=== PATIENT | male | born 1930 | race Native Hawaiian/Other Pacific Islander ===

== ENCOUNTER 2020-09-18 01:07 | Emergency (ER) | payer OTHER ==
[~2020-09-18] VITALS: Ht 182.9 cm; Wt 69.9 kg
[2020-09-18 01:07] VITALS: BP 114/62; TEMP 98.7
[2020-09-18 01:35] LABS: PLATELET COUNT 218 K/uL (142-355)
[2020-09-18 02:05] LABS: POTASSIUM 3.7 mmol/L (3.6-5.2)
[2020-09-18 02:38] VITALS: BP 141/62; TEMP 98.5
[2020-09-18] MEDS ORDERED: ASPIR-8181 MG PO (03:37)
[2020-09-18] MEDS ORDERED: LOVASTATIN20 MG PO (03:39)
[2020-09-18] MEDS ORDERED: METO50TA63 PO (03:40)
[2020-09-18] MEDS ORDERED: OMEPRAZOLE DR40 MG PO (03:43)
[2020-09-18] MEDS ORDERED: SEROQUEL25 MG PO (03:45)
[2020-09-18] MEDS ORDERED: CARAFATE1 GM PO (03:47)
[2020-09-18] MEDS ORDERED: NITR0.4S2 SL (03:51)
[2020-09-18] MEDS ORDERED: PANTOPRAZOLE SO40 M1 PO (03:53)
[2020-09-19] MEDS ORDERED: RISP0.25 PO (10:27)
[2020-09-19] MEDS ORDERED: NYSTCRE TOP (10:27)
[2020-09-19] MEDS ORDERED: OLAN10INJ IM (10:27)
[2020-09-19] MEDS ORDERED: MELATONIN MAXIMU5 MG PO (10:27)
[2020-09-19] MEDS ORDERED: FLUC150T PO (10:28)
[2020-09-19] MEDS ORDERED: ESCI10TA PO (10:28)
[2020-09-19] MEDS ORDERED: CHOL100034 PO (10:29)
[2020-09-19] MEDS ORDERED: CEFT1INJ27 IM (10:29)
[2020-09-19] MEDS ORDERED: DIPH50IN INJ (10:29)
== END 2020-09-18 02:38 | disposition other institution (70) ==
LOC: ED 01:07 → ICU 09-19 11:50 → ED 09-19 11:50
DX: F03.91 Unspecified dementia, unspecified severity, with behavioral disturbance (principal); R31.9 Hematuria, unspecified; Z11.59 Encounter for screening for other viral diseases; Z04.6 Encounter for general psychiatric examination, requested by authority
CPT/HCPCS: 36415; 80053; 81000; 85027; 87077; 87088; 87635; 93005; 99283; J0132; U0003

== ENCOUNTER 2020-09-19 11:50 | Inpatient (IN) | payer OTHER ==
[2020-09-19] VITALS (25 sets, daily range): BP systolic 90–1143; BP diastolic 31–94; TEMP 97–102.9; Ht 182.9 cm; Wt 68.2 kg
[~2020-09-19] VITALS: Ht 182.9 cm; Wt 68.2 kg
[~2020-09-19 11:50] MED LIST: ASPIR-8181 MG PO; CARAFATE1 GM PO; CEFT1INJ27 IM; CHOL100034 PO; DIPH50IN INJ; ESCI10TA PO; FLUC150T PO; LOVASTATIN20 MG PO; MELATONIN MAXIMU5 MG PO; METO50TA63 PO; NITR0.4S2 SL; NYSTCRE TOP; OLAN10INJ IM; OMEPRAZOLE DR40 MG PO; PANTOPRAZOLE SO40 M1 PO; RISP0.25 PO; SEROQUEL25 MG PO
--- NOTE | 2020-09-19 12:00 | NUR ---
PT WAS TRANSFERRED TO AN ICU BED WITH NORMAL SALINE ALREADY INFUSING. TRADESHOW WORKER AND TELEMETRY WAS PUT ON PT AFTER ARRIVING FROM THE [facility]. PT AGITATED DUE TO STIMULATION AT THIS TIME.
--- NOTE | 2020-09-19 12:00 | NUR ---
PATIENT BROUGHT VIA STRETCHER TO ICU BED #2. PATIENT IS CONFUSED AND AGITATED PULLING STAFF WITH HIS HANDS AND HOLLERING WHEN REPOSITIONING HIM IN THE BED. IV 22G TO THE LEFT FOREARM NOTED PATENT AND INTACT INFUSING 1/2 NS AT 75 ML/HR. SHIFT ASSESSMENT COMPLETED. DEFIBRILLATOR NOTED TO THE LEFT CHEST WALL. PATIENT HAS A SMALL RASH ON HIS CHEST AND SEVERAL SMALL ABRASIONS TO BILATERAL LOWER EXTREMITIES. PATIENT HAS A 18F.SCOTT CATHETER DRAINING TO TO BSD --DARK GALLITO URINE NOTED. PATIENT ALSO HAS EXCORIATION NOTED TO THE SACRUM WITH SKIN INTACT. PATIENT NOTED WITH AXILLARY TEMP 102.9. RECTAL PROBE PLACED AND COOLING BLANKET APPLIED AT THIS TIME.
--- NOTE | 2020-09-19 13:00 | NUR ---
HUNG TYLENOL RUNNING AT 100 MLS/ 200/MLS HOUR WHICH INFUSED IN 30 MINUTES DUE TO A FEVER OF 102.9. PT'S TEMP ONLY DROPPED TO 102.3 AFTER INFUSION. COOLING BLANKET ON PT NOW.
--- NOTE | 2020-09-19 14:15 | NUR ---
VANCOMYCIN @ 250MLS/ 250 MLS/HOUR INFUSING AT THIS TIME WITH NORMAL SALINE THE PRIMARY FLUID.
--- NOTE | 2020-09-19 15:22 | NUR ---
VANCOMYCIN ANTIBIOTIC JUST FINISHED INFUSING AND FLUSHED THE LINE TO START THE ZOCYN
--- NOTE | 2020-09-19 15:50 | NUR ---
ZOCYN PB FINISHED AT THIS TIME SIDE RAILS UP TIMES THREE, BED IN LOWEST POSITION, AND AGITATED AT THIS TIME.
--- NOTE | 2020-09-19 15:59 | NUR ---
BENADRYL 25 MG GIVEN AT THIS TIME FOR AGITATION. WILL MONITOR EFFECTIVENESS IN THE COMING HOUR
--- NOTE | 2020-09-19 17:30 | NUR ---
PT IS RESTLESS AND AGITATED AT THIS TIME. GRIMACES UPON STIMULATION OF ANY STIMULI. SIDE RAILS UP TIMES THREE, BED IN LOWEST POSITION.
--- NOTE | 2020-09-19 17:48 | NUR ---
HAD TO STOP FLUCONAZOLE INFUSION DUE TO OCCLUSION IN THE LINE. CLAMPED OFF BOTH PRIMARY AND SECONDARY INFUSION DUE TO OCCLUSION.
--- NOTE | 2020-09-19 17:53 | NUR ---
CURRENTLY RECTAL TEMP IS 101.5 AT THIS TIME. COOLING BLANKET ON PT. STILL AGITATED AND RESTLESS AT THIS TIME.
--- NOTE | 2020-09-19 18:15 | NUR ---
20 GAUGE TIMES TWO ATTEMPTS LOCATED IN RIGHT CEPAHLIC VEIN. FLUSHED SUCCESSFULY AND FLUCONAZOLE AND NS FLUIDS ARE RUNNING SUCCESSFULLY THROUGH THE LINE NOW.
--- NOTE | 2020-09-19 19:43 | NUR ---
PT WAS GIVEN OFIRMEV 1000MG IV FOR ELEVATED TEMPERATURE OF 100.4.
--- NOTE | 2020-09-19 20:00 | NUR ---
ASSUMED CARE OF 89 YEAR OLD WHITE MALE ADMITTED TODAY FROM [facility] WITH UROSEPSIS. PT HAS 18 MALAWIAN SCOTT CATHETAR AND HAS DARK URINE DRAINING. BLOOD CULTURES RESULTS REPORTED FROM LAB. BOTH ARE POSITIVE. PT IS RECEING ANTIBIOTIC THERAPY AT PRESENT. PT WAS ASSESSED. PT DOES MOVE HIS ARMS AND LOWER EXT. PT WITH NATIONAL ACCOUNTS SALES BRUSING TO HIS UPPER EXTREMITIES. ORAL CARE BEING GIVEN AND PT BEING TURNED EVERY 2 HOURS/AND PRN.
--- NOTE | 2020-09-19 20:30 | NUR ---
TEMPERTURE REASSESS 99.0 RECTAL.
[2020-09-20] VITALS (16 sets, daily range): BP systolic 80–138; BP diastolic 44–83; TEMP 96.9–98.4
--- NOTE | 2020-09-20 00:17 | NUR ---
PT RESTING WITH EYES CLOSED. NS INFUSING AT 75 ML/HR VIA INFUSION PUMP. BP IS 109/47.
--- NOTE | 2020-09-20 02:08 | NUR ---
PT CONTINUES TO REST WITH EYES CLOSED. VS STABLE. O2 SAT IS 100 PERCENT.
--- NOTE | 2020-09-20 03:59 | NUR ---
PT WAS GIVEN BENADRYL 25 MG IVSP FOR AGITATION. PT BECOMES SCARED AND STARTS CRYING. TALKED TO PT CALMLY AND REASSURED HIM THAT HS IS SAFE. PT CALMS DOWN WITH MEDICATION AND COMFORT MEASURE.
--- NOTE | 2020-09-20 04:00 | NUR ---
PATIENT'S BED SCALE WEIGHT IS 152.8 LBS, WITH 2 PILLOWS AND 2 BLANKETS ON BED.
--- NOTE | 2020-09-20 05:29 | NUR ---
LAB HERE TO DRAW BLOOD FOR AM LABS.
[2020-09-20 05:43] LABS: PLATELET COUNT 145 K/uL (142-355)
[2020-09-20 06:07] LABS: POTASSIUM 3.7 mmol/L (3.6-5.2)
--- NOTE | 2020-09-20 07:00 | NUR ---
RECEIVED REPORT FROM MERRITT FUCHS RN. PATIENT IS AWAKE ATTEMPTING TO REMOVE ALL MONITORS AND KICKING HIS LEGS UP IN THE AIR. PATIENT REQUIRING MAX REDIRECTION WITH NO SUCCESS. PATIENT BECOMES MORE AGITATED AND IS CRYING OUT LOUDLY WITH NO ONE TOUCHING HIM. CALM APPROACH PROVIDED BUT PATIENT CONTINUES TO BE AGITATED AND AGGRESIVE. BED LOCKED IN LOW POSITION, SIDE RAILS UP X2, CALL BANEGAS WITHIN REACH
--- NOTE | 2020-09-20 07:05 | NUR ---
PATIENT GIVEN ZYPREXA 2.5 MG IM IN THE RIGHT VASTUS LATERALIS. WILL ASSESS POST MEDICATION FOR A DECREASE IN AGITATION AND RESTLESSNESS.
--- NOTE | 2020-09-20 08:57 | NUR ---
HERE ROUNDING ON PATIENT. PATIENT IS SITTING IN HIGH FOWLERS POSITION AND IS QUITE AND NOT PULLING AT LEADS. PATIENT IS NOT RESTLESS AND AGITATED AT THIS TIME. BED LOCKED IN LOW POSITION, SIDE RAILS UP X3.
--- NOTE | 2020-09-20 09:27 | NUR ---
PATIENT ATTEMPTING TO GET OUT OF BED BY SLIDING ALL THE WAY TO THE END OF THE BED. ATTEMPT MADE TO REDIRECT PATIENT WITH NO SUCCESS. PATIENT AGITATED AND STARTING HOLLERING. 2 PERSON ASSIST WAS NEEDED TO MOVE PATIENT BACK UP IN THE BED. BED LOCKED IN LOW POSITION, SIDE RAILS UP X3
--- NOTE | 2020-09-20 10:19 | NUR ---
PATIENT REPOSITIONED UP IN THE BED WITH HELP FROM NANO STAFFORD AND THUAN ASSISTANT ELEMENTARY TEACHER. PATIENT ATTEMPTING TO GET OUT OF THE BED WITH HIS LOWER EXTREMITITES UP IN THE AIR AND ATTEMPTING TO PULL UP USING THE SIDE RAILS. PATIENT ADJUSTED UP IN THE BED WITH HEAD ELEVATED. MONITORS PLACED BACK ON PATIENT WITH SPO2 95%, HR 91.
--- NOTE | 2020-09-20 10:36 | NUR ---
PATIENT CONTINUES TO SHOW SIGNS OF AGITATION AND RESTLESSNESS ATTEMPTING TO CLIMB OUT OF THE BED. PATIENT REMAINS HIGH FALL RISK FROM PREVIOUS FALLS AND CURRENT ADMISSION HX OF DEMENTIA AND AGITATION AND AGGRESSION. PATIENT GIVEN BENADRYL 25 MG IV PUSH ORDERED FOR AGITATION. WILL REASSESS FOR DECREASE IN AGITATION.
--- NOTE | 2020-09-20 12:06 | NUR ---
PATIENT PULLED ALL MONITORS OFF AND IS ATTEMPTING TO GET UP OUT OF BED. PATIENT REPOSITIONED UP IN THE BED AND ALL MONTIORS PLACED BACK ON THE PATIENT. CURRENT AXILLARY TEMP 99. HR 73. BED LOCKED IN LOW POSITION, SIDE RAILS UP X2, CALL BANEGAS WITHIN REACH.
--- NOTE | 2020-09-20 13:46 | NUR ---
VANCOMYCIN 1000MG SPIKED AND HUNGED AT THIS TIME.
--- NOTE | 2020-09-20 15:00 | NUR ---
ADRIANNA HERE WITH SPEECH LANGUAGE PATHOLOGIST HERE AT THE BEDSIDE DOING EVALUATION FOR DIET. PATIENT WAS ABLE TO TAKE APPLE JUICE WITH NECTAR THICKENING AND ATE A JACI CRACKER COOKIE. NEW ORDER PLACED IN CHART FOR SOFT MECHANICAL DIET AND NECTAR THICKENED LIQUIDS.
--- NOTE | 2020-09-20 16:18 | NUR ---
PATIENT PULLED OUT HIS IV FROM THE RIGHT UPPER ARM WITH TIP INTACT. AREA SECURED WITH 2X2 AND COVERED WITH TAPE. IV 20G X2 ATTEMPTS STARTED TO THE RIGHT FOREARM WITH GOOD FLUSH RETURN. AREA SECURED WITH NAOMI AND TAPE.
--- NOTE | 2020-09-20 16:25 | NUR ---
AFTER A FEW MINUTES OF 1/2 NS FLUIDS INFUSING TO THE RIGHT FOREARM PATIENT PULLED HIS IV OUT WITH TIP INTACT. AREA NOTED WITH SMALL AMOUNTS OF BLOOD AT SITE. AREA SECURED WITH TAPE AND NAOMI. PATIENT ALSO PULLING ELECTRODES AND MONITOR, TUGGING AT HIS SCOTT CATHETER DESPITE REDIRECTION.
--- NOTE | 2020-09-20 17:25 | NUR ---
PATIENT GIVEN A PARTIAL BATH AND LINENS CHANGED. NYSTATIN APPLIED TO PERINEUM AND BUTTOCKS. 3 PERSON ASSIST TO HOLD PATIENT TO START IV. IV 20G X 1 ATTEMPT STARTED TO THE RIGHT WRIST/FOREARM W/O DIFFICULTY.
--- NOTE | 2020-09-20 18:00 | NUR ---
PATIENT CONTINUES TO ATTEMPT TO REMOVE CARDIAC MONITORS AND SCOTT CATHETER. PATIENT ALMOST ATTEMPTED TO PULL 3RD IV OUT BUT MANAGED TO SECURE THE TIP. IV FLUSHED AND NO RESISTANCE NOTED FLUSHING WITHOUT DIFFICULTY. WHEN ATTEMPTING TO ORIENT PATIENT HE IS AGITATED SQUEEZING HARD WITH HANDS AND DIGGING NAILS INTO THE NURSES HANDS AND ARM. CALLED AND NEW ORDER GIVEN FOR BILATERAL SOFT WIRST RESTRAINTS. SOFT WIRST RESTRAINTS APPLIED AT THIS TIME. AFTER RESTRAINTS PATIENT IS MORE CALM AND IS RESTING COMFORTABLY. WILL CONTINUE TO MONITOR.
--- NOTE | 2020-09-20 19:43 | NUR ---
PT WAS REPOSITIONED IN BED HIGH FOWLERS. PT CALM. PCT AT BEDSIDE ASSISTING WITH FEEDING AT THIS TIME.
[2020-09-21] VITALS (21 sets, daily range): BP systolic 110–145; BP diastolic 50–93; TEMP 97.1–98.6
--- NOTE | 2020-09-21 00:34 | NUR ---
PT AGITATED MOVING LEGS AND ARMS. TALKING AND RAMBLING WITH HIS CONVERSATION. PT WAS MEDICATED WITH OLANZAPINE 5 MG IM GIVEN TO PT'S LEFT QLUTEAL MUSCLE.
--- NOTE | 2020-09-21 03:58 | NUR ---
PT RESTING. CALMING DOWN SOME. URINE IS DARK BROWN.
[2020-09-21 04:46] LABS: PLATELET COUNT 153 K/uL (142-355)
[2020-09-21 05:17] LABS: POTASSIUM 3.4 mmol/L (3.6-5.2)
--- NOTE | 2020-09-21 09:00 | NUR ---
DR COX AT BS AT THIS TIME. LABS REPORTED AND INFORMED MD OF PT AGITATION AND THAT PT HAD PULLED HIS IV OUT PRIOR TO ROUNDS. PT REMAINED AGITATED SO WILL ATTEMPT IV AT A LATER TIME.
--- NOTE | 2020-09-21 14:30 | NUR ---
SPOKE WITH ON PHONE CONCERNING PT'S SODIUM LEVEL REMAINING AT 153 AND PT CURRENTLY GETTING 1/2NS AT 75ML/HR. ALSO REPORTED POTASSIUM LEVEL AT 3.5. STATED SHE WOULD PUT IN NEW ORDERS.
--- NOTE | 2020-09-21 14:32 | NUR ---
REC'D CALL FROM PT'S SON. UPDATE GIVEN AT THIS TIME.
--- NOTE | 2020-09-21 14:59 | NUR ---
DREW FROM PHARM CALLED AND INFORMED HER MD WAS DC 1/2NS AND CHANGING TO D5W ALSO SPOKE ABOUT VAN TROUGH . VAN WILL BE RETIMED PER PHARM
--- NOTE | 2020-09-21 16:45 | NUR ---
PT WOKE UP FROM NAP CRYING UNCONTROLLABY. WENT TO PT'S BED AND ASKED WHAT WAS WRONG AND PT STATED HE WAS WORRIED ABOUT HIS AND WAs worried she was dying. redirected pt and reoriented at this time. pt still crying will inform md for possible new orders.
--- NOTE | 2020-09-21 17:00 | NUR ---
INFORMED OF PT CRYING. NO NEW ORDERS REC'D WILL GIVE PT PRN ORDERS AND SEE IF MEDS HELP. ALSO CALLED PT'S SON BRANDY FOR HIM TO SPEAK WITH PT. NO ANSWER LEFT MESSAGE.
--- NOTE | 2020-09-21 17:12 | NUR ---
PT'S SON CALLED BUT ON CORDLESS PHONE. EXPLAINED TO SON THE PROBLEM AND WILL CALL HIM BACK ON CORDLESS PHONE FOR HIM TO TALK TO SON.
--- NOTE | 2020-09-21 19:20 | NUR ---
REPOSITIONED PATIENT IN BED WITH ASSISTANCE OF NURSE GLEZ. PATIENT TOLERATED WELL. NO S/SX OF DISTRESS NOTED WITH PATIENT AT THIS TIME.
--- NOTE | 2020-09-21 20:38 | NUR ---
PT CONFUSED REORIENTED NEEDED BUT ONLY ORIENTED TO SELF. TALKATIVE WITH STAFF AND ALSO TALKING OUT LOUD WHEN STAFF IS NOT AT BEDSIDE, MOVING FEET AROUND IN BED AND PICKS FEET UP INTO AIR OR PUTS FOOT OVER BEDRAIL AT TIMES. NO ACUTE DISTRESS NOTED, WILL MONITOR CLOSELY, RAILS UP, BED IN LOW POSITION.
--- NOTE | 2020-09-21 21:40 | NUR ---
PM MEDICATIONS GIVEN TO PATIENT AND LEADS REPLACED WITHOUT DIFFICULTY. PATIENT CONVERSING WITH STAFF WITH TEARFUL MOMENTS.
[2020-09-22] VITALS (22 sets, daily range): BP systolic 94–162; BP diastolic 31–99; TEMP 97.1–99.8
--- NOTE | 2020-09-22 00:01 | NUR ---
PATIENT RESTING QUIETLY IN BED WITH EYES OPEN. NO S/SX OF DISTRESS NOTED WITH PATIENT AT THIS TIME.
--- NOTE | 2020-09-22 02:56 | NUR ---
RESTING IN BED WITH EYES CLOSED, NO S/S OF PAIN OR DISTRESS NOTED, RESP RATE NONLABORED 13, SCOTT PATENT DRAINING TO BEDSIDE, IV SITE INTACT WITH D5 INFUSING AT 75ML/HR, ON ROOM AIR WITH SAT OF 98%, VITALS BEING MONITORED, CRIMINAL ATTORNEY IN USE WITH PACEMAKER SPIKES NOTED AND RATE OF 76, WILL MONITOR CLOSELY, RAILS UP, BED IN LOW POSITION.
--- NOTE | 2020-09-22 03:40 | NUR ---
PROVIDED PATIENT A WARM BLANKET. PT V/O HIS APPRECIATION FOR SAME. NO S/SX OF DISTRESS NOTED WITH PATIENT AT THIS TIME.
--- NOTE | 2020-09-22 03:50 | NUR ---
PATIENT RESTING QUIETLY IN BED WITH EYES CLOSED. NAD NOTED WITH PATIENT AT THIS TIME.
--- NOTE | 2020-09-22 04:45 | NUR ---
LAB AT BEDSIDE TO DRAW MORNING BLOOD WORK, ASSISTED LAB, NO ACUTE DISTRESS NOTED, WILL MONITOR.
[2020-09-22 04:58] LABS: PLATELET COUNT 163 K/uL (142-355)
--- NOTE | 2020-09-22 05:09 | NUR ---
PT AWAKE TALKING OFF AND ON FIDGETING WITH COVERS, REMAINS CONFUSED EXCEPT TO SELF, DENIES ANY PROBLEMS, NO S/S OF ACUTE DISTRESS OR PAIN NOTED, PT MOVING FEET AROUND IN BED AND LIFTS FEET OFF OF BED INTO AIR OFF AND ON DURING SHIFT. AT TIMES PT CALLS FOR HIS OR OTHER FAMILY MEMBERS REORIENTED NEEDED BUT REMAINS CONFUSED. SCOTT PATENT, IV INTACT WITH FLUID ONGOING. WILL MONITOR CLOSELY, RAILS UP, BED IN LOW POSITION.
[2020-09-22 05:13] LABS: POTASSIUM 3.2 mmol/L (3.6-5.2)
--- NOTE | 2020-09-22 06:00 | NUR ---
PATIENT WEIGHT THIS AM IS 152.9, 2 PILLOWS AND 1 BLANKET AND BED LINENS ON BED.
--- NOTE | 2020-09-22 06:04 | NUR ---
PT AWAKE MOVING FEET AROUND IN BED AND PUTTING LEGS UP IN AIR, TALKING TO STAFF AND TALKING OUT LOUD WHEN STAFF IS NOT AT BEDSIDE, REMAINS CONFUSED, RESP RATE NONLABORED, ON ROOM AIR WITH SAT OF 99%, IV INTACT TO R FA WITH FLUID ONGOING AND SCTOT PATENT DRAINING TO BEDSIDE, DENIES ANY PROBLEMS, NO S/S OF PAIN OR ACUTE DISTRESS NOTED. GOWN AND TOP SHEET CHANGED ALONG WITH CHUX. MOUTH CARE COMPLETED AND LIPS MOISTURIZED, PT STATES "THANK YOU" AUTO SUSPENSION AND STEERING MECHANIC GAVE CARE. REORIENTED PT. WILL MONITOR CLOSELY, RAILS UP, BED IN LOW POSITION.
--- NOTE | 2020-09-22 08:00 | NUR ---
PT VERY AGITATED. NOTICED THAT PT IS LESS AGITATED WITH DECREASED EXTERNAL STIMUL AND PT NOTED TO BE MORE CALM WITH SOMEONE SITTING BESIDE HIM ONE ON ONE CARE. PCT AT BS IN CHAIR AT THIS TIME. PT IN HIGH FOWELRS POSITION NO ACUTE DISTRESS NOTED.
--- NOTE | 2020-09-22 11:00 | NUR ---
DR COX AT BS AT THIS TIME.
--- NOTE | 2020-09-22 11:05 | NUR ---
XRAY AT BS TO OBTAIN CHEST XRAY AT THIS TIME
--- NOTE | 2020-09-22 11:30 | NUR ---
LABS REPORTED TO DR COX WHILE WAS AT BS. NEW ORDERS REC'D FOR POTASSIUM 60MEQ PO ONCE NO FURTHER ORDERS AT THIS TIME.
--- NOTE | 2020-09-22 13:30 | NUR ---
PT'S SON CALLED AND UPDATE GIVEN AT THIS TIME. PT'S SON STATED THAT HIS FATHER DOES IN [place] [employer] [place] AND HE WAS UNDER THE UNDERSTANDING HIS DADS GLASSES WENT WITH HIM TO THE [facility]. [facility] CALLED AND I SPOKE TO THUAN ALVARADO RN AND NO GLASSES FOUND WITH ISABELLA GARCIA . WILL CALL PT'S SON BACK AND ASK HIM TO TOUCH BASE WITH SNF PT WAS AT PRIOR TO TRANSFER TO [facility]. PT GIVEN EXTRA PAIR OF READING GLASSES TO BORROW AT THIS TIME. PT STATED "THERE NOW I CAN SEE"
--- NOTE | 2020-09-22 16:27 | NUR ---
PT WOKE UP FROM SLEEPING AGITATED AND FIDGETING WITH CORDS AND SHEETS. PT NOTED TO BE CRYING UNABLE TO CONSOLE. INFOMRED. PT GAVE PRN MEDS PRIOR TO NOTIFYING .
--- NOTE | 2020-09-22 18:00 | NUR ---
PT REMAINS ANXIOUS AND NOTED THAT OUTPUT FROM SCOTT ONLY 450ML OF CONCENTRATED URINE WITH SEDIMENT NOTED IN BOTTOM OF SCOTT BAG. SCOTT CATH IRRIGATED WITH 100ML OF STERILE WATER AND SCOTT BAG CHANGED AT THIS TIME. 160ML OF BLOOD TINGED URINE/IRRIGATION NOTED IN SCOTT BAG;. PT STATED HE FELT BETTER AFTER IRRIGATION AND PT LESS AGITATED. WILL CONT TO MONITOR AND INFORM
--- NOTE | 2020-09-22 18:15 | NUR ---
DR COX INFORMED OF SCOTT AND IRRIGATION AND BLOOD TINGE URINE. NO NEW ORDERS REC'D AT THIS TIME
--- NOTE | 2020-09-22 20:22 | NUR ---
PT AWAKE AND ANXIOUS WORRIED ABOUT HIS "ROSE", REPEATEDLY ASKING ABOUT HIS PT REASSURED MULTIPLE TIMES. CONFUSED TO PLACE TIME AND SITUATION REORIENTED OFTEN. RESP RATE 18 NONLABORED, ON ROOM AIR WITH SAT IN HIGH 90s, VITALS BEING MONITORED, CONE MARKER IN USE WITH PACER SPIKES NOTED RATE OF 94, SCOTT PATENT DRAINING TO BEDSIDE, 22G IV INTACT TO R FA WITH D5 INFUSING AT 75ML/HR, WILL MONITOR CLOSELY, RAILS UP, BED IN LOW POSITION.
--- NOTE | 2020-09-22 20:48 | NUR ---
PT APPEARS LESS ANXIOUS AT THIS TIME, SAND MILL GRINDER AT BEDSIDE TALKING WITH PT AND REASSURED HIM MULTIPLE TIMES, NO ACUTE DISTRESS NOTED, RAILS UP, BED IN LOW POSITION, WILL CONTINUE TO MONITOR CLOSELY.
--- NOTE | 2020-09-22 22:00 | NUR ---
AWAKE WATCHING TV WITH NO ACUTE DISTRESS NOTED, FIDGETING WITH COVERS AND REMOTE TO TV TALKATIVE WITH STAFF AND ASKING ABOUT HIS OFF AND ON, REASSURED PT, ALSO LIFTS FEET IN AIR AND SOMETIMES OVER SIDE OF BED RAIL ON R SIDE, REDIRECTED PT, WILL MONITOR, RAILS UP, BED IN LOW POSITION.
--- NOTE | 2020-09-22 23:08 | NUR ---
PATIENT IS IN SEMI FOWLERS POSITION, MUMBLING AND BECOMES TEARFUL AT TIMES REQUESTING TO GO HOME TO HIS , ROSE. REDIRECTED PATIENT AND REMINDED HIM HE WAS IN THE HOSPITAL. REASSURED PATIENT ROSE IS SAFE AT HOME.
[2020-09-23] VITALS (22 sets, daily range): BP systolic 89–152; BP diastolic 42–102; TEMP 98.5–98.9
--- NOTE | 2020-09-23 01:20 | NUR ---
PT RESTING IN BED WITH EYES CLOSED, NO S/S OF PAIN OR DISTRESS NOTED, RESP RATE NONLABORED, ON ROOM AIR, VITALS BEING MONITORED, RAILS UP, BED IN LOW POSITION, WILL MONITOR CLOSELY.
--- NOTE | 2020-09-23 01:45 | NUR ---
PT AWAKE IN BED CONFUSED FIDGETING WITH COVERS NO ACUTE DISTRESS NOTED, IV INTACT, SCOTT PATENT, RESP RATE NONLABORED, VITALS BEING MONITORED, WILL MONITOR CLOSELY, RAILS UP, BED IN LOW POSITION. PICKS FEET UP OFF BED AND MOVING THEM IN AIR. REASSURED AND REORIENTED PT, PT REMAINS CONFUSED.
--- NOTE | 2020-09-23 02:52 | NUR ---
REMAINS AWAKE WITH NO ACUTE DISTRESS NOTED, REMAINS CONFUSED ONLY ORIENTED TO SELF/PERSON REORIENTED OFTEN AND REMINDED THAT HE IS AT HOSPITAL, RESP RATE NONLABORED ON ROOM AIR WITH SAT OF 99-100%, 18F SCOTT PATENT DRAINING TO BEDSIDE, 22G IV INTACT TO R FA WITH FLUID ONGOING, VITALS BEING MONITORED, CONVERSION WORKER IN USE WITH RATE IN 90s. ENCOURAGED PT TO GET SOME SLEEP. RAILS UP, BED IN LOW POSITION, STAFF CONTINUES TO MONITOR.
[2020-09-23 05:20] LABS: PLATELET COUNT 178 K/uL (142-355)
--- NOTE | 2020-09-23 05:20 | NUR ---
AWAKE LAYING IN BED WITH NO S/S OF ACUTE DISTRESS OR PAIN NOTED, CONFUSED AND FIDGETING WITH COVERS/GOWN/CORDS OFF AND ON, REORIENTED PT OFTEN DURING SHIFT, ATTEMPTED TO REDIRECT PT, RESP RATE NONLABORED, ON ROOM AIR, RESIDENT CARE AID IN USE AND VITALS BEING MONITORED Q 1 HOUR, WHEN ASKED PT DENIES ANY NEEDS, STATES SOMETHING ABOUT GOING HOME REMINDED PT THAT THE DR WOULD BE HERE THIS MORNING TO SEE HIM, IV INTACT WITH FLUID ONGOING, SCOTT PATENT DRAINING TO BEDSIDE NOTE PT HAS GRABBED SCOTT CATH TUBING TRYING TO GET IT OUT OF THE [place] BUT IS NOT REALLY PULLING ON TUBING. ENCOURAGED NOT TO MESS WITH SCOTT TUBING. WILL MONITOR CLOSELY, RAILS UP, BED IN LOW POSITION, HOB ELEVATED.
[2020-09-23 05:35] LABS: POTASSIUM 3.6 mmol/L (3.6-5.2)
--- NOTE | 2020-09-23 08:00 | NUR ---
DR COX CALLED AND LAB RESULTS GIVEN AT THIS TIME. NO NEW ORDERS REC'D AT THIS TIME.
--- NOTE | 2020-09-23 13:30 | NUR ---
PT RESTING QUIETLY IN BED WITH EYES CLOSED. NO DISTRESS NOTED.
--- NOTE | 2020-09-23 14:00 | NUR ---
DR COX AT BS MAKING ROUNDS. PT REMAINS RESTING WITH EYES CLOSED NO PROBOLEMS NOTED
--- NOTE | 2020-09-23 18:03 | NUR ---
PT'S SON BRANDY CALLED FOR AN UPDATE. UPDATE GIVEN. ASSISTED PT WITH HOLDING THE PHONE SO THAT BRANDY COULD TALK TO HIM. PT TOLERATED WELL NO OUTBURST OR ANXIOUSNESS NOTED AFTER TALKING TO SON. PT STATES "THANK YOU"
--- NOTE | 2020-09-23 19:20 | NUR ---
PT RESTING QUIETLY IN BED WITH EYES CLOSED, NO S/S OF PAIN OR DISTRESS NOTED, RESP RATE NONLABORED, ON ROOM AIR WITH SAT OF 100%, 18F SCOTT PATENT DRAINING TO BEDSIDE, 22G IV INTACT TO R FA WITH D5 INFUSING AT 75ML/HR, SKIN WARM AND DRY WITH SOME BRUISES/THIN FRAILE AREAS OF SKIN NOTED ON ARMS, RADIAL AND PEDAL PULSES INTACT/EQUAL, BS+, WILL CONTINUE TO MONITOR CLOSELY, RAILS UP, BED IN LOW POSITION, HOB ELEVATED, SEE ASSESSMENT FOR MORE INFO.
--- NOTE | 2020-09-23 20:10 | NUR ---
PT APPEARS RESTLESS/FIDGETING WITH COVERS/GOWN/CORDS AND MOVING FEET IN AIR. ALSO PT MESSING WITH SCOTT CATH TUBING AT TIMES. PT NOTED TO PLACE FEET OVER SIDE RAILS AND WHEN REORIENTED/REDIRECTED PT CONTINUES. CALLED ER AND SPOKE WITH DR. Jaylin BERUMEN ABOUT PT STATUS ALSO PT HAS NOT SLEPT MUCH SINCE THURSDAY. INFORMED THAT PT HAS ZYPREXA 2.5MG IM PRN ORDERD BUT THAT DID NOT HELP PT WHEN GIVEN TO HIM BY PRENATAL NURSE LAST NIGHT. 2037 NEW TELEPHONE ORDER FOR ZYPREXA 5MG IM X [address] R&V DR. BERUMEN/SONI AMAYA RN.
--- NOTE | 2020-09-23 21:15 | NUR ---
PT NOW APPEARS MORE CALM AND NO LONGER PULLING AT STUFF, CLOSING EYES OFF AND ON WITH NO DISTRESS NOTED. WILL HOLD OFF ON GIVING ZYPREXA 5MG PER NEW ORDER. WILL MONITOR, RAILS UP, BED IN LOW POSITION. PT REMAINS CONFUSED.
--- NOTE | 2020-09-23 23:45 | NUR ---
RESTING IN BED WITH EYES CLOSED, NO S/S OF PAIN OR DISTRESS NOTED, RESP RATE NONLABORED, ON ROOM AIR WITH SAT OF 98%, SCOTT PATENT DRAINING TO BEDSIDE, VITALS BEING MONITORED/STABLE, IV INTACT WITH FLUID ONGOING, REPOSITIONED IN BED PT AROUSED FOR A WHILE DENIES ANY NEEDS, WILL MONITOR, RAILS UP, BED IN LOW POSITION. PT REMAINS CONFUSED REORIENTED OFTEN.
[2020-09-24] VITALS (22 sets, daily range): BP systolic 90–148; BP diastolic 45–80; TEMP 97.2–98.4
--- NOTE | 2020-09-24 02:05 | NUR ---
RESTING QUIETLY IN BED WITH EYES CLOSED, NO S/S OF PAIN OR DISTRESS NOTED, RESP RATE 18-20 NONLABORED, ON ROOM AIR WITH SAT OF 98%, SCOTT PATENT, IV INTACT TO R FA WITH NO PROBLEMS NOTED TO SITE, VITALS BEING MONITORED, DIGITAL X RAY SERVICE ENGINEER IN USE WITH RATE IN 70s WITH PACER SPIKES NOTED ON SCREEN, FEET ELEVATED ON PILLOW BY BRIM CUTTER BUT PT KEEPS BENDING LEGS BACK UP TOWARDS HIS BODY AND FEET/HEELS ARE THEN TOUCHING THE BED, REPOSITIONED, HOB REMAINS ELEVATED, BED ALARM ON, RAILS UP, WILL MONITOR CLOSELY.
--- NOTE | 2020-09-24 03:02 | NUR ---
CONTINUES TO REST QUIETLY WITH EYES CLOSED, NO S/S OF PAIN OR DISTRESS NOTED, WILL MONITOR CLOSELY, RAILS UP, BED IN LOW POSITION, HOB ELEVATED.
--- NOTE | 2020-09-24 05:28 | NUR ---
RESTING WITH EYES CLOSED AND LIGHT SNORING NOTED, NO S/S OF PAIN OR DISTRESS NOTED, RESP RATE NONLABORED, REMAINS ON ROOM AIR WITH O2 SAT OF 97%, SCOTT PATENT, IV INTACT, VITALS BEING MONITORED, WILL MONITOR CLOSELY, RAILS UP, BED IN LOW POSITION.
[2020-09-24 06:04] LABS: POTASSIUM 3.5 mmol/L (3.6-5.2)
[2020-09-24 06:09] LABS: PLATELET COUNT 179 K/uL (142-355)
--- NOTE | 2020-09-24 09:53 | NUR ---
09/24/2020 0830 RESTING EYES CLOSED RESP EVEN NONLABORED CALM.NAD NOTED EASILY AROUSES. 09/24/2020 0925 SPEECH THERAPY PRESENT PT GIVEN I CUP OF JUICE TOLERATED WELL WITH STRAW.PT REFUSED EATING FOOD THIS AM STATES HIS STOMACH IS TIGHT.CC
--- NOTE | 2020-09-24 10:14 | NUR ---
09/24/2020 1010 REPOSTIONED TO BACK,OFFERED PATIENT TO TRY SO MORE BITES OF BREAKFAST BUT REFUSED AT THIS TIME.[facility] PROVIDED TOLERATED WELL.CC
--- NOTE | 2020-09-24 11:40 | NUR ---
09/24/2020 1100 PT ARIUSED UP IN BED TALKING RESP EVEN NONLABORED CALM.IV FLUIDS INFUSING WITHOUT DIFFICULTY AT 75ML/HR.CC
--- NOTE | 2020-09-24 13:24 | NUR ---
09/24/2020 1320 NOTIFIED OF PT HAVING LAST BM ON 09/17/2020 ALSO FIRM ABDOMEN WITH DISTENTION.REPORTED PT NOT EATING MUCH AT THIS TIME.NEW ORDER TO GIVE COLACE 100MG BID ALSO MAY USE SUPPOSITORY NEEDED FOR CONSTIPATION.CC
--- NOTE | 2020-09-24 14:22 | NUR ---
09/24/2020 1341 SON BRANDY CALLED TO ICU TO CHECK ON PATIENT/DAD TOLD HIM DAD WAS DOING ALRIGHT RESTING SOME AND WAKES UP ON OCCASION TO TALK ALITTLE.SON SAID TO CALL FOR ANY CHANGES.CC
--- NOTE | 2020-09-24 14:32 | NUR ---
1410 DR. JENNINGS IN TO SEE EXAM PATIENT NO NEW ORDERS AT THIS TIME.BED ALARM IS ON.CALL LIGHT WITHIN REACH.CC
--- NOTE | 2020-09-24 16:42 | NUR ---
09/24/[address] JENNINGS PRESENT IN ICU,PT C/O OF STOMACH PAINS AFTER RECEIVING SUPPOSITORY.PT HEART RATE WENT UP TO 140'S FOR A FEW SCONDS POSSIBLY DUE TO BEARING DOWN FOR BOWEL MOVEMENT.CHECKED PT NO BM AT THIS TIME.WILL CONTINUE TO MONITOR.CC
--- NOTE | 2020-09-24 17:34 | NUR ---
09/24/2020 1715 PT SITTING HF ON BEDPAN MOANING SAID HE HAS TO USE RESTROOM.SMALL AMOUNT OF LOOSE BROWN STOOL IN BEDPAN.PT SAID HEHASTO GO SOME MORE LEFT PT ON BEDPAN WILL CONTINUE TO MONITOR.CC
--- NOTE | 2020-09-24 18:27 | NUR ---
09/24/2020 1800 PT TAKEN OFF BEDPAN HAD A SMALL LOOSE STOOL BROWN IN COLOR.CLEANED PT WITH WIPES NO BREAKDOWN NOTED.PT EAT EVENING MEAL WITH APPROX 25-50 PERCENT WITH ALL OF TEA TOLERATED WELL.BED ALARM PLACED ON BED.CALL LIGHT WITHIN REACH.CC
--- NOTE | 2020-09-24 20:00 | NUR ---
PT IS AWAKE AND TALKATIVE. CONFUSED AT TIMES. VS WNLS. SCOTT CATH INTACT WITH TEA COLORED URINE DRAINING.
--- NOTE | 2020-09-24 20:54 | NUR ---
AT BEDSIDE WITH PATIENT GIVING PO MEDS AT THIS TIME IN A HIGH-FOWLERS POSITION WITH WATER. PT. TOLERTAED WELL AND TOLERATES VERBAL STIMULI AND CORRESPONDS AT THIS TIME.
[2020-09-25] VITALS (21 sets, daily range): BP systolic 87–166; BP diastolic 42–80; TEMP 98–98.8
--- NOTE | 2020-09-25 02:56 | NUR ---
PT RESTING WITH EYES CLOSED. D5W INFUSING AT 75ML/HR VIA INFUSION PUMP. O2 SATS ARE 98.
--- NOTE | 2020-09-25 04:23 | NUR ---
TYLENOL 400 MLS/HR @ 100ML IVPB GIVEN AT THIS TIME FOR MODERATE DISCOMFORT. CHANGED PATIENT AT THIS TIME. PT. RESPONSIVE TO VERBAL STIMULI AND ABLE TO COMMUNICATE.
--- NOTE | 2020-09-25 04:29 | NUR ---
ASSESS PT. ABDOMEN IS HARD IN LOWER REGION. CATHETAR WAS IRRIGATED AND BLOODY DRAINAGE NOTED AFTER. AFTER IRRIGATION. URINE DRAINAGE IMPROVED AND ABDOMEN BECAME SOFTER. ABDOMEN WAS REASSESS AND WAS MORE RELAXED/SOFTER WITH PALPATION. PT WAS MEDICATED WITH OFERMIR FOR PAIN.
--- NOTE | 2020-09-25 05:30 | NUR ---
LAB AT BEDSIDE FOR A BLOOD DRAW. PT. TOLERATED WELL AND REACTED TO VERBAL AND SENSORY STIMULI
[2020-09-25 05:56] LABS: POTASSIUM 4.3 mmol/L (3.6-5.2)
--- NOTE | 2020-09-25 07:30 | NUR ---
PT RESTING WITH EYES CLOSED.O2 SATS 100% ON RM AIR.
--- NOTE | 2020-09-25 09:33 | NUR ---
PT WITH LARGE LOOSE BROWN BM. PERICARE. TESTICLES REMAIN SL RED BUT IMPROVED, SL RED BUTTOCKS NEAR COCCYX . P PT TURNED & REPOSITIONED FOR COMFORT. PT TURNES SELF FREQUENTLY FROM POSITION PLACED IN. L HAND RESTAINT INTACT.
--- NOTE | 2020-09-25 11:03 | NUR ---
SPEECH IN TO EVAL PT. DIET WILL REMAIN THE SAME FOR NOW.
[2020-09-25 11:31] LABS: PLATELET COUNT 192 K/uL (142-355)
--- NOTE | 2020-09-25 12:30 | NUR ---
DR JENNINGS IN TO SEE PT. REPORTED DISTENDED ABD & HYPOACTIVE BS. REPORTED BM'S FROM LAST PM & THIS AM.
--- NOTE | 2020-09-25 12:35 | NUR ---
BATH & PERSONAL CVARE. PERICARE FOR LARGE LOOSE INCONTINENT BM.
--- NOTE | 2020-09-25 14:04 | NUR ---
PT WITH LARGE WATERY BM, PERICARE, PT C/O ABD PAIN & COMPLAIN WHEN ABD PALPATED. CALL TO DR JENNINGS. NEW ORDER.
--- NOTE | 2020-09-25 14:12 | NUR ---
RADIOLOGY IN FOR ABD XRAY.
--- NOTE | 2020-09-25 15:20 | NUR ---
PT WITH NOTED 200ML BLOODY URINE IN SCOTT BAG. SCOTT IRRIGATED WITH 60 ML STERILE WATER PER TIAN WANG RN WITH SM AMT BLOOY DILUTED URINE REYURN & DEVERAL SNALL & 1 LARGE CLOT. NOTED BLOODY DRAINAGE FROM URINE WITH IRRIGATION. BALOON ON SCOTT DEFLATED & RE INFLATED WITH 10 ML STERILE NS. PT CONTINUES TO C/O 'MY STOMACH HURTS'& 'I'M SICK A LITTLE'. PT AFFIRMED THAT HE WAS 'NAUSEATED. MEDICATED WITH ZOFRAN 4 MG IVP. PT CHECKED FOR IMPACTION. LARGE AMT OF SOFT STOOL IN THE RECTUM. MANUAL REMOVAL OF MODERATE AMT OF STOOL WITH PT ASSISTING PER TIAN WANG RN. PT STAES AFTERWARD' THAT FEELS SO MUCH BETTER'. DR JENNINGS NOTIFIED OF ALL OF ABOVE. NEW ORDERS RECEIVED & NOTED.
--- NOTE | 2020-09-25 16:25 | NUR ---
PATIENT GIVEN 5 OZ OF MAGNESIUM CITRATE MIXED WITH NECTAR THICKENING. PATIENT TOOK MEDICATIION WITHOUT DIFFICULTY. WILL ATTEMPT OTHER REMAINING 5 OZ OF MAGNESIUM CITRATE IN 30 MINUTES.
--- NOTE | 2020-09-25 17:40 | NUR ---
SS ENEMA GIVEN. PT HELD PART OF IT FOR A SHORT TIME. GIVEN SLOWLY ADDITIONAL AMT HOLDING SEV TIMES TO ENCOURAGE PT TO HOLD MORE ENEMA. PASSED LARGE AMT WATERY BROWN WATER WITH BM & SMALL PIECES OF SOLID BM. PERICARE. SCOTT WITH SM AMT BLOODY DRAINAGE FROM URETHRA. SCOTT CARE. TOLERATED WITH NO MAJOR C/O.
--- NOTE | 2020-09-25 18:05 | NUR ---
SPOKE WITH SON BRANDY AND PATIENTS ROSE AND GAVE THEM UPDATE ON PATIENTS CURRENT STATUS.
--- NOTE | 2020-09-25 18:26 | NUR ---
NEW ORDER FOR PHYSICAL THERAPY TO EVAL & TREAT.
--- NOTE | 2020-09-25 19:50 | NUR ---
PT HAD LARGE LIQUID STOOL. PT WAS CLEANED AND LINENS WERE CHANGED. CALAMAZINE WAS APPLIED TO KOFI AREAS.
--- NOTE | 2020-09-25 20:37 | NUR ---
PO MEDS ORDERED BY PHYSICIAN CRUSHED AND GIVEN WITH PUDDING AT THIS TIME. PT. TOLERATED WELL. PT IS AGITATED AND WAS TRANSFERRED TO A SHAY CHAIR ALSO AT THIS TIME. NEW LINENS WERE PUT ON THE PT'S BED. GENERAL MANAGER AND TELEMETRY WAS OFF THE PT AT THIS TIME. PT HAD 2 BOWEL MOVEMENTS UP TO THIS POINT THAT WERE LARGE AND LOOSE.
--- NOTE | 2020-09-25 21:00 | NUR ---
PT WAS ASSISTED UP OUT OF BED TO CHAIR. PT INCONTINENT OF STOOL AND TRYING TO GET UP OUT OF BED TO GO TO BR. PT HAS DEMENTIA AND BECOMES MORE CONFUSED AT NIGHT. PT WAS ABLE TO SIT UP FOR APPROX 1 AND 1/2 HOURS. WHILE PATIENT WAS SITTING UP BED LINENS WERE CHANGED. PT HAD TWO MORE STOOLS. STOOLS WERE PASTY AND LARGE.
--- NOTE | 2020-09-25 23:00 | NUR ---
PT POSITIONED IN BED . MOUTH CARE WAS DONE. PT MORE CALM NOW.
[2020-09-26] VITALS (22 sets, daily range): BP systolic 100–151; BP diastolic 44–79; TEMP 97.9–98.6
--- NOTE | 2020-09-26 | NUR ---
PT CONTINUES TO REST WITH EYES CLOSED. VS WNLS.
--- NOTE | 2020-09-26 03:20 | NUR ---
VANCOMYCIN IVPB GIVEN AT THIS TIME. PT IS RESTING QUIETLY WITH SIDE RAILS UP TIMES TWO AND BED IN LOWEST POSITION. RESPIRATIONS 20 AT THIS TIME.
--- NOTE | 2020-09-26 04:43 | NUR ---
BLOOD WAS DRAWN AND SENT TO LAB AT 04:30AM.
[2020-09-26 04:55] LABS: PLATELET COUNT 220 K/uL (142-355)
[2020-09-26 04:56] LABS: POTASSIUM 4.1 mmol/L (3.6-5.2)
--- NOTE | 2020-09-26 05:11 | NUR ---
JOSE GUADALUPE BLOOD FROM PT'S LEFT HAND FOR CBC AND CMP. SENT TO LAB FOR RESULTS AT THIS TIME.
--- NOTE | 2020-09-26 07:00 | NUR ---
REC'D PT RESTING IN BED WITH EYES CLOSED. NO ACUTE DISTRESS NOTED. WILL CON'T TO MONITOR.
--- NOTE | 2020-09-26 07:43 | NUR ---
NEW ORDERS REC'D TO INCREASE IVF'S TO 125ML/HR PER MD SO IVF'S INCRASED AT THIS TIME.
--- NOTE | 2020-09-26 09:17 | NUR ---
KUMAR IN PHARM CALLED AND STATED THAT PT NEEDED TO HAVE VAN NANDINI DONE TONNINA 2129. ORDER TAKEN AND WILL REPROT TO ONCMONING SHIFT.
--- NOTE | 2020-09-26 11:30 | NUR ---
DR JENNINGS AT MAKING ROUNDS AT THIS TIME. INFOMRED COLOR AND AMT OF URINE IN SCOTT BAG. APPROX 223 ML OF BROWNISH URINE NOTED IN SCOTT BAG. NEW ORDERS REC'D TO DC CURRENT SCOTT AND INSESRT ANOTHER ONE
--- NOTE | 2020-09-26 11:40 | NUR ---
SCOTT CATH REMOVED PER MD ORDERS. REMAINS AT BS. SCOTT DC'D AND ROUTINE CARE GIVEN. SMALL AMT OF BRIGHT RED BLOOD NOTED AFTER REMOVAL OF SCOTT. PT TOLEARTED WELL.
--- NOTE | 2020-09-26 11:55 | NUR ---
AFTER SEVERAL ATTEMPTS TO INSERT ANOTHER CATH PER MD ORDERS 18 ROMANSH COUDE INSERTED PER MD PER ALEE NOVOA. SMALL AMT OF BLEEDING NOTED DURING INSERTION PROCESS. 1000ML OF IMMEDIATE BROWN URINE NOTED IN SCOTT BAG PAST INSERTION. SCOTT CLAMPED AT THIS TIME WILL CONT TO MONITOR PT. PT TOELRATED WNL AFTER ONE TIME DOSE OF MORPHINE 1MG IVP GIVEN. PT RESTING WITH EYES CLOSED.
--- NOTE | 2020-09-26 13:10 | NUR ---
BETH UNCLAMPED AT THIS TIME. 400ML OF BROWN URINE NOTED TO SCOTT BAG AFTER SCOTT UNCLAMPED. WILL CONT TO MONITOR. PT REMAINS RESTING WITH EYES CLOSED.
--- NOTE | 2020-09-26 14:30 | NUR ---
PT'S SON CALLED FOR UPDATE. UPDATE GIVEN. SON REQUESTED THAT DR JENNINGS CALL HIM WHENEVER HE COULD TO DISCUSS FURTHER CARE OF HIS FATHER. WILL INFORM MD OF REQUEST.
--- NOTE | 2020-09-26 18:03 | NUR ---
DR JENNINGS INFORMED THAT PT HAS HAD TOTAL OUTPUT IN SCOTT 3550 ML OF URINE THIS SHIFT. URINE REMAINS TO BE BROWN IN COLOR. PT HAS SLEPT PEACFULLY THIS WHOLE SHIFT. UNABLE TO GET PO MEDS IN PT THIS SHIFT INFORMED AGAIN. NO DISTRESS NOTED.
--- NOTE | 2020-09-26 18:36 | NUR ---
URINE IN SCOTT BAG NOTED TO BE BLOOD TINGED AT THIS TIME. WILL REPROT TO ONCOMING SHIFT FOR THEM TO MONITOR.
--- NOTE | 2020-09-26 19:30 | NUR ---
PT RESTING QUIETLY IN BED WITH EYES CLOSED, NO S/S OF PAIN OR DISTRESS NOTED, RESP RATE NONLABORED, ON ROOM AIR, SCOTT PATENT, IV INTACT WITH FLUID ONGOING, VITALS BEING MONITORED, SLAG WHEELER IN USE WITH PACER SPIKES NOTED AND RATE IN 80s, WILL MONITOR CLOSELY, RAILS UP, BED IN LOW POSITION.
--- NOTE | 2020-09-26 20:45 | NUR ---
PT AROUSED TO PARKING LINE PAINTER TOUCHING HIM AND CALLING HIS NAME, DENIES ANY PROBLEMS AT THIS TIME, ASKS WHAT TIME IT IS PT CONFUSED EXCEPT TO SELF REORIENTED. PT DRANK NECTAR THICK TEA AND TOOK HIS NIGHTLY MEDS CRUSHED IN PUDDING, HOB LEFT ELEVATED AFTER GIVING MEDS. PT TALKATIVE WITH STAFF. LET PT TRY SOME OF HIS SUPPER TRAY BUT PT DID NOT LIKE FOOD. WILL MONITOR CLOSELY, RAILS UP, BED IN LOW POSITION.
--- NOTE | 2020-09-26 22:28 | NUR ---
RESTING IN BED WITH EYES CLOSED, NO S/S OF PAIN OR DISTRESS NOTED, RESP RATE 18 NONLABORED, ON ROOM AIR WITH SAT OF 97%, IV INTACT TO R FA WITH D5 1/4 NS INFUSING AT 125ML/HR, SCOTT PATENT DRAINING TO BEDSIDE WITH BLOOD TINGED URINE NOTED IN BAG, VITALS BEING MONITORED, WOOL SHEARING SUPERVISOR IN USE WITH PACER SPIKES NOTED AND RATE IN 80s, PT REPOSITIONED SELF TO R SIDE, WILL MONITOR CLOSELY, RAILS UP, BED IN LOW POSITION, CALL LIGHT IN REACH.
--- NOTE | 2020-09-26 22:38 | NUR ---
SPRING WITH PHARM-D CALLED ABOUT VANCO TROUGH RESULTS. INFORMED THAT DOSE DUE AT 2200 WAS ALREADY HELD. SPRING SUGGESTS ANOTHER LEVEL BE DRAWN ON THURSDAY MORNING BUT WILL LEAVE A NOTE FOR ONSITE PHARM. LEVEL WILL BE REPORTED TO HOSPITALIST IN MORNING, DID NOT SUGGEST TO REPORT TO ER DR AT THIS TIME.
[2020-09-27] VITALS (25 sets, daily range): BP systolic 97–158; BP diastolic 44–72; TEMP 97.4–98.9
--- NOTE | 2020-09-27 01:44 | NUR ---
PT RESTING IN BED WITH EYES CLOSED, NO S/S OF PAIN OR DISTRESS NOTED, VITALS BEING MONITORED, TRAVEL SPECIALIST IN USE, SCOTT PATENT, IV SITE INTACT, RESP RATE NONLABORED, WILL MONITOR CLOSELY, RAILS UP, BED IN LOW POSITION, CALL LIGHT IN REACH.
--- NOTE | 2020-09-27 01:45 | NUR ---
PREVIOUS NOTE AT 0144 CHARTED AT WRONG TIME CORRECT TIME IS 0005 .
--- NOTE | 2020-09-27 01:54 | NUR ---
PT RESTING WITH EYES CLOSED, NO S/S OF PAIN OR DISTRESS NOTED, PT AROUSES TO LASER MACHINE OPERATOR TOUCHING AND TALKING TO HIM, DENIES ANY PROBLEMS OR NEEDS, PULLED UP IN BED THEN REPOSITIONED TO L SIDE, FEET ELEVATED ON PILLOW, WILL MONITOR CLOSELY, RAILS UP, BED IN LOW POSITION.
--- NOTE | 2020-09-27 02:10 | NUR ---
NOTE FRESH URINE IN SCOTT CATH TUBING IS YELLOW.
--- NOTE | 2020-09-27 04:00 | NUR ---
RESTING WITH EYES CLOSED NO S/S OF PAIN OR DISTRESS NOTED, RESP RATE NONLABORED ON ROOM AIR, VITALS BEING MONITORED, IV SITE INTACT WITH FLUID ONGOING, 18F SCOTT PATENT DRAINING TO BEDSIDE, REPOSITIONED TO BACK AND FEET ELEVATED ON PILLOW, WILL MONITOR, RAILS UP, BED IN LOW POSITION, CALL LIGHT IN REACH.
[2020-09-27 05:13] LABS: PLATELET COUNT 225 K/uL (142-355)
--- NOTE | 2020-09-27 06:02 | NUR ---
RESTING WITH EYES CLOSED, NO DISTRESS NOTED, AROUSES BRIEFLY TO CELL LINER TOUCHING HIM AND CALLING HIS NAME, DENIES ANY PROBLEMS OR NEEDS, REPOSITIONED TO R SIDE IN BED, IV INTACT, SCOTT PATENT, FEET ELEVATED ON PILLOW, TOP SHEET CHANGED, WILL MONITOR, RAILS UP, BED IN LOW POSITION.
--- NOTE | 2020-09-27 07:15 | NUR ---
RECIEVED REPORT ON PT. PT RESPONDS EASILY TO VERBAL STIMULI AND IS RESTING QUIETLY WITH SIDE RAILS UP TIMES THREE, BED IN LOWEST POSITION AND IN NO ACUTE DISTRESS AT THIS TIME. RESPIRATIONS ARE 21 AND 02 SAT IS 96%
--- NOTE | 2020-09-27 08:00 | NUR ---
NOTIFIED FROM PHARMACY THAT PT'S VANCOMYCIN ANTIBIOTIC IS BEING HELD DUE TO A LEVEL OF 33.5. PUT ORDERS IN FOR A VANCOMYCIN TROUGH IN FOR TOMORROW MORNING AT 0600.
--- NOTE | 2020-09-27 08:48 | NUR ---
PROTONIX GIVEN AT THIS TIME. PO MEDS FOR PT CRUSHED AND GIVEN WITH ICE CREAM AT THIS TIME. PT TOLERATED WELL. PT IS IN NO ACUTE DISTRESS AND RESPONSIVE TO VERBAL STIMULI AT THIS TIME. SIDE RAILS UP TIMES THREE, BED IN LOWEST POSITION AND ATTENTIVELY TALKING AT THIS TIME.
--- NOTE | 2020-09-27 09:10 | NUR ---
SPEECH LANGUAGE PATHOLOGY AT BEDSIDE AT THIS TIME. AFTER FURTHER ANALYSIS, PT WAS CHANGED TO A MECHANICAL SOFT CONSISTENCY DIET
--- NOTE | 2020-09-27 12:59 | NUR ---
DEXTROSE-1/4 NS SOLUTION 1000 ML HUNG AT THIS TIME. IV SITE IS FREE FROM ANY EDEMA AND ERRYTHEMA. NO INFILTRATION OR PHLEBITIS FELT OR SEEN AT THE SITE.
--- NOTE | 2020-09-27 17:37 | NUR ---
PT YELLING AND SCREAMING AT STAFF. PT VERY AGITATED. PT SITTING UP IN BED IN HGIH CHAVARRIA POSITION AND HAD CONSUMED NECTAR THICKENED LEMON WATER AND WAS TALKING TO STAFF PREVIOUSLY AND THEN BECAME AGITATED. PT DID HOWEVER CALM DOWN AND THEN NOTED TO BE CRYINGL. PT AWAKE AND ALERT AND AWARE HE IS IN HOSP. ASKED PT IF HE WANTED ME TO CALL HIS SON SO HE COULD TALK TO HIMN AND HE SAID YES. WILL CALL PT'S SON MR NAVA
--- NOTE | 2020-09-27 17:45 | NUR ---
MR NAVA PT'S SON NOTIFIED VIA PHONE AND EXPLAIEND TO HIM THAT PT WAS LITTLE UPSEST BUT WANTD TO TALK TO HIM. CORDLESS PHONE TAKEN TO PT AND PT SPOKE WITH SON. PT WAS ALSERT AND ORIENTED X 3 AT THIS TIME. WILL CONT TO MONITOR.
--- NOTE | 2020-09-27 19:50 | NUR ---
ATTEMPTED TO FLUSH 22G IV SITE TO RIGHT FA WITHOUT SUCCESS, SITE INFILTRATED WITH REDNESS AND EDEMA NOTED. IV SITE D/C'D WITH TIP IN TACT. NEW IV SITE STARTED TO RFA WITH 20G JELCO STYLET X1 STICK WITH SUCCESS, FLUSHED WITH NS 10ML WITHOUT DIFFICULTY AND GOOD BLOOD RETURN NOTED. PATIENT DENIES ANY PAIN OR BURNING TO SITE. NAD NOTED WITH PATIENT AT THIS TIME.
--- NOTE | 2020-09-27 20:10 | NUR ---
PATIENT GIVEN A BED BATH, PROVIDED A FACIAL SHAVE, GOWN CHANGED AND LINENS CHANGED. PATIENT TOLERATED WELL.
--- NOTE | 2020-09-27 22:49 | NUR ---
RESTING IN BED WITH EYES CLOSED, NO S/S OF PAIN OR DISTRESS NOTED, RESP RATE NONLABORED, ON ROOM AIR WITH SAT OF 99%, VITALS BEING MONITORED, IV INTACT WITH FLUID ONGOING, STATIONARY BOILER FIREMAN IN USE WITH PACER SPIKES NOTED AND RATE OF 84, SCOTT PATENT, WILL MONITOR CLOSELY, RAILS UP X3, BED IN LOW POSITION, CALL LIGHT IN REACH.
--- NOTE | 2020-09-27 22:54 | NUR ---
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 NOTE PT FIDGETING WITH COVERS OFTEN ENCOURAGED TO RELAX AND GET SOME SLEEP. WILL MONITOR CLOSELY.
[2020-09-28] VITALS (19 sets, daily range): BP systolic 126–162; BP diastolic 55–81; TEMP 97.9–98.9
--- NOTE | 2020-09-28 04:23 | NUR ---
PATIENT RESTING QUIETLY IN SEMI FOWLERS POSITION WITH EYES CLOSED WITH SR UP X3, AND BED IN LOW POSITION AND LOCKED. NO S/SX OF DISTRESS NOTED WITH PATIENT AT THIS TIME.
--- NOTE | 2020-09-28 04:48 | NUR ---
LAB AT BEDSIDE FOR BLOOD DRAW FOR AM LABS. PATIENT TOLERATED WELL.
[2020-09-28 05:26] LABS: PLATELET COUNT 233 K/uL (142-355)
--- NOTE | 2020-09-28 05:28 | NUR ---
PT AWAKE TALKATIVE, TALKING OUT LOUD REMAINS CONFUSED EXCEPT TO PERSON/SELF, NO ACUTE DISTRESS NOTED, DENIES ANY NEEDS OR PROBLEMS AT THIS TIME, REORIENTED PT OFTEN AND ALSO ATTEMPT TO REDIRECT PT ALSO ENCOURAGE PT TO GET SOME REST. IV SITE INTACT TO L FA WITH FLUID ONGOING, RESP RATE NONLABORED,VITALS BEING MONITORED/STABLE, SCOTT PATENT DRAINING TO BEDSIDE, GLASS CRUSHER IN USE WITH RATE IN 80s PACER SPIKES NOTED ON MONITOR. PT WILL FOLLOW SIMPLE DIRECTIONS AND MAKES HIS NEEDS KNOWN, ASSISTS STAFF WITH CARE AT TIMES. WILL MONITOR CLOSELY, RAILS UP, BED IN LOW POSITION, CALL LIGHT IN REACH.
[2020-09-28 05:41] LABS: POTASSIUM 4.4 mmol/L (3.6-5.2)
--- NOTE | 2020-09-28 07:30 | NUR ---
IS HERE ROUNDING ON PATIENT THIS MORNING.
--- NOTE | 2020-09-28 08:29 | NUR ---
PATIENT IS AWAKE THIS MORNING AND IS ASKING FOR HIS BREAKFAST. PATIENT IS AOX1 AND IS PLEASENT. SHIFT ASSESSMENT COMPLETED AT THIS TIME. PATIENT HAS A 20G TO THE LEFT FOREARM INTACT INFUSING D5 1/4 AT 125 ML/HR. PATIENT HAS A 18F.SCOTT CATHETER IN FUSING YELLOW URINE APPROX. 300 ML NOTED IN THE BAG. PATIENT DENIES ANY PAIN AND MAKES HIS NEEDS KNOWN. NO ACUTE DISTRESS WAS NOTED.
--- NOTE | 2020-09-28 09:05 | NUR ---
SPEECH THERAPY HERE ASSISTING PATIENT WITH EATING BREAKFAST. PATIENT IS EATING ON HIS OWN AND TOLERATING MECHANICAL SOFT DIET. PATIENT ATE ABOUT 50% OF HIS BREAKFAST AND ALL HIS SWEET TEA AND 1/2 OF HIS COFFEE.
--- NOTE | 2020-09-28 10:22 | NUR ---
PATIENT NOTED TEARFUL STATES " ROSE IS IN HER BED". PATIENT REORIENTED AND PROVIDED EMOTINAL SUPPORT. THIS NURSE CALLED HIS SON BRANDY PEDRO IN REGARDS TO GETTING IN TOUCH WITH MRS. ROSE PEDRO. BRANDY GAVE ME HER NUMBER . LET KNOW I WOULD BE CALLING HIS SHORTLY. PATIENT IS NOT TEARFUL AND IS READING THE NEWSPAPER AT THIS TIME.
--- NOTE | 2020-09-28 11:15 | NUR ---
CALLED AND PLACED HER ON THE HANDHELD PHONE AND ALLOWED TO TALK TO HER ON THE PHONE. PATIENT TEARFUL BUT THEN WAS THANKFUL FOR LETTING US CALL HIS . PATIENT IS NOT UPSET NOW AND IS RESTING QUIETLY IN THE BED.
--- NOTE | 2020-09-28 12:10 | NUR ---
PATIENT IS ATTEMPTING TO GET UP OUT OF THE BED DESPITE REDIRECTION. PATIENT REPOSITIONS HIMSELF TO THE EDGE OF THE BED AND WANTS TO STAND UP BUT HE IS WEAK AND REQUIRES MAX ASSIST X2. SIDERAILS UP X3 FOR PATIENT SAFETY.
--- NOTE | 2020-09-28 13:00 | NUR ---
PATIENT ASSISTED TO THE BEDSIDE CHAIR WITH 2 PERSON ASSIST. PATIENT DID NOT WANT TO LEAVE ANY MONITORS ON INCLUDING B/P, ELECTRODES AND PULSE OX. NO ACUTE DISTRESS NOTED. PATIENT OFFERED DIVERSIONAL ACTIVITIES INCLUDING NEWSPAPER CLIPS AND WRITITNG PAPER AND PEN.
--- NOTE | 2020-09-28 14:19 | NUR ---
PATIENT ASSISTED BACK IN THE BED FROM THE BEDSIDE CHAIR. PATIENT IS CONTINUING TO GET UP OUT OF THE BED AND IS PULLING AT ALL THE MONITORS. PATIENT REQUIRES REPEAT AND MAX REDIRECTION. ATTEMPT MADE TO REDIRECT AND PATIENT REDIRECTS FOR A BRIEF SECOND AND THEN GETS AGITATED AGAIN WITH PERIODS OF TEARFULNESS.
--- NOTE | 2020-09-28 17:54 | NUR ---
PATIENT KEEPS ATTEMPTING TO GET OUT OF BED. HE STATES THAT HE NEEDS TO GET HIS NUMBERS AND GET BACK TO WORK. PATIENT REORIENTED. PATIENT STILL ATTEMPTING TO GET OUT OF BED AFTER REORIENTATION. PATIENT GIVEN PEN AND PAPER AND A NEWSPAPER . PATIENT REFUSES TO WATCH TV. PATIENT WANTS TO LEAVE THE HOSPITAL.
--- NOTE | 2020-09-28 19:45 | NUR ---
PT AWAKE AND CONFUSED, TALKATIVE WITH STAFF AND TALKING OUT LOUD TO STAFF, DENIES ANY PAIN OR PROBLEMS, NO S/S OF PAIN OR ACUTE DISTRESS NOTED. PT ORIENTED TO SELF/PERSON CONFUSED STATING THAT HIS IS , REASSURED AND REORIENTED PT INFORMED PT THAT HIS WAS ALIVE. REMINDED PT THAT HE WAS IN HOSPITAL AND HIS FAMILY WAS OKAY. PT ALSO CONSTANTLY FIDGETING WITH COVERS, GOWN, AND TUBING. ATTEMPTING TO REDIRECT, CAN REDIRECT FOR A FEW MINUTES AT A TIME. 20G IV INTACT TO L FA WITH FLUID ONGOING, 18F SCOTT PATENT DRAINING TO BEDSIDE, BS+, LUNGS CLEAR TO AUSCULTATION, SKIN WARM AND DRY, RADIAL AND PEDAL PULSES INTACT, SLIGHT EDEMA NOTED TO BILATERAL ANKLE AREAS TRACE PITTING FEET PLACED ON PILLOW BUT PT KEEPS MOVING FEET AROUND CONSTANTLY IN BED ALSO PULLS AT BEDRAILS TALKING ABOUT GETTING READY TO LEAVE, REORIENTED. VITALS BEING MONITORED, STOPE MINER IN USE, FOR MORE INFO SEE SHIFT ASSESSMENT. RAILS UP X3, BED IN LOW POSITION, CALL LIGHT IN REACH.
--- NOTE | 2020-09-28 21:02 | NUR ---
REMAINS AWAKE AND CONFUSED, TRYING TO GET UP THINKS THAT HIS IS IN BED NEXT TO HIM AND IS TALKING TO HER, REORIENTED AND ATTEMPTED TO REDIRECT PT, CONTINUES TO TALK CONSTANTLY AND FIDGET WITH COVERS GOWN TUBING AND NEWS PAPER, ATTEMPTED DIVERSONAL ACTIVITY(COLORING) PT COLORED FOR MINUTE OR 2. IV SITE INTACT WITH FLUID ONGOING, RESP RATE NONLABORED, SCOTT PATENT DRAINING TO BEDSIDE, VITALS BEING TAKEN, INSURANCE BUSINESS ANALYST IN USE WITH PACER SPIKES NOTED RATE IN 90s, WILL MONITOR, RAILS UP, BED IN LOW POSITION.
[2020-09-29] VITALS (18 sets, daily range): BP systolic 105–173; BP diastolic 54–91; TEMP 97.9–99.7
--- NOTE | 2020-09-29 00:25 | NUR ---
PATIENT AGGITATED AND ATTEMPTING TO EXIT BED, NOTIFIED ER PHYSICIAN AND RECEIVED AN ORDER FOR ATIVAN 1MG SIVP X1 DOSE NOW, NOTED AND CARRIED OUT. ADMINISTERED BY NURSE Maribel AMAYA RN. PATIENT TOLERATED WELL. WILL MONITOR CLOSELY FOR ANY ADVERSE REACTIONS.
--- NOTE | 2020-09-29 01:09 | NUR ---
PATIENT ASLEEP WITH NO DISTRESS NOTED AT THIS TIME.
--- NOTE | 2020-09-29 03:24 | NUR ---
RESTING QUIETLY ON SIDE WITH EYES CLOSED, NO S/S OF PAIN OR DISTRESS NOTED, VITALS BEING MONITORED AND ARE STABLE, ON ROOM AIR WITH SAT IN HIGH 90s, SCOTT PATENT, IV INTACT, WILL MONITOR, RAILS UP, BED IN LOW POSITION.
--- NOTE | 2020-09-29 04:10 | NUR ---
CONTINUES TO REST QUIETLY IN BED WITH EYES CLOSED, NO S/S OF PAIN OR DISTRESS NOTED, RESP RATE 14 NONLABORED, ON ROOM AIR WITH SAT OF 97-99%, 18F SCOTT PATENT DRAINING TO BEDSIDE WITH CLEAR YELLOW URINE NOTED IN BAG, 20G IV INTACT TO L FA WITH D5 1/4 NS INFUSING, VITALS BEING MONITORED AND ARE STABLE, FEET ELEVATED ON PILLOW, REPOSITIONED OFTEN DURING SHIFT, WILL MONITOR, RAILS UP X3, BED IN LOW POSITION, CALL LIGHT IN REACH.
[2020-09-29 04:54] LABS: PLATELET COUNT 282 K/uL (142-355)
[2020-09-29 05:04] LABS: POTASSIUM 4.1 mmol/L (3.6-5.2)
--- NOTE | 2020-09-29 06:20 | NUR ---
AWAKE OFF AND ON WITH NO DISTRESS NOTED, REMAINS CONFUSED, VITALS BEING MONITORED, IV INTACT, SCOTT PATENT, REPOSITIONED TO L SIDE, WILL MONITOR CLOSELY, RAILS UP, BED IN LOW POSITION.
--- NOTE | 2020-09-29 08:46 | NUR ---
PATIENT IS RESTING QUIETLY AT THIS TIME. SHIFT ASSESSMENT COMPLETED. NO ACUTE DISTRESS IS NOTED.
--- NOTE | 2020-09-29 09:21 | NUR ---
HERE ROUNDING ON PATIENT.
--- NOTE | 2020-09-29 09:30 | NUR ---
PATIENT ASSISTED WITH EATING. PATIENT APPROX 50% OF HIS BREAKFAST WITHOUT DIFFICULTY.
--- NOTE | 2020-09-29 10:43 | NUR ---
PATIENT IS RESTING QUIETLY WITH EYES CLOSED. B/P 133/77, HR-74, SPO2 96%, RR-18.
--- NOTE | 2020-09-29 11:20 | NUR ---
PATIENT IS RESTING QUIETLY ON HIS BACK. PATIENT VS ARE STABLE. NO ACUTE DISTRESS NOTED.
--- NOTE | 2020-09-29 13:49 | NUR ---
NO ACUTE DISTRESS NOTED. PATIENT IS RESTING QUIETLY. NO AGITATION OR DISTRESS NOTED.
--- NOTE | 2020-09-29 14:30 | NUR ---
PATIENT IS RESTING COMFORTABLY AND DOES AWAKE WITH STIMULATION AND VERBAL COMMANDS. PATIENT DROWSYBUT STILL AWAKENS.
--- NOTE | 2020-09-29 16:18 | NUR ---
PATIENT IS RESTING ON HIS BACK WITH EYES CLOSED. CURRENT HR 77, SPO2 96%, RR 18, B/P 146/76. NO ACUTE DISTRESS NOTED.
--- NOTE | 2020-09-29 17:50 | NUR ---
PATIENT IS AWAKE AND STATES " WHAT TIME IS IT", PATIENT ABLE TO TELL IT IS 1730 IN THE EVENING. PATIENT IS RESTING QUIETLY WITH EYES OPEN AND NOT ATTEMPTING TO GET UP OUT OF BED.
--- NOTE | 2020-09-29 18:01 | NUR ---
PATIENT IS AWAKE AND SITTING UP IN HIGH FOWLERS POSITION. SETUP UP SUPPER TRAY WITH PATIENT EATING ON HIS OWN. PATIENT IS ALERT TO PERSON. NO ACUTE DISTRESS NOTED.
[2020-09-30] VITALS (19 sets, daily range): BP systolic 105–154; BP diastolic 54–448; TEMP 97.4–98.6
--- NOTE | 2020-09-30 05:12 | NUR ---
PT WAS REPOSITIONED IN BED. PT TOLERATED SMALL SIPS OF WATER. PT IS TALKATIVE WITH STAFF.
[2020-09-30 05:41] LABS: PLATELET COUNT 305 K/uL (142-355)
--- NOTE | 2020-09-30 07:00 | NUR ---
PATIENT IS AWAKE AND IS ATTEMPTING TO GET UP OUT OF BED BUT REDIRECTED PLACING BOTH LOWER EXTREMITIES BACK UP IN THE BED.
--- NOTE | 2020-09-30 09:08 | NUR ---
PATIENT GIVEN PO MEDS WITH PUDDDING AND HE TOLERATED WELL W/O DIFFICULTY.
--- NOTE | 2020-09-30 10:07 | NUR ---
PATIENT GIVEN BREAKFAST TRAY WITH PATIENT EATING ON HIS OWN WITHOUT SOME ASSISTANCE. NO ACUTE DISTRESS IS NOTED.
--- NOTE | 2020-09-30 10:19 | NUR ---
POST ATIVAN FOR AGITATION AND PATIENT ATTEMPTING TO PULL OFF ALL MONITORS DESPITE REDICRECTION. PATIENT IS RESTING WITH EYES CLOSED. NO ACUTE DISTRESS IS NOTED.
--- NOTE | 2020-09-30 11:54 | NUR ---
PATIENT IS RESTING QUIETLY IN THE BED IN NO ACUTE DISTRESS. WILL CONTINUE TO MONITOR.
--- NOTE | 2020-09-30 12:46 | NUR ---
PATIENT IS RESTING QUIETLY WITH EYES CLOSED. NO ACUTE DISTRESS IS NOTED. CURRENT SPO2 96% ON RA. SIDERAILS UP X2.
--- NOTE | 2020-09-30 14:28 | NUR ---
PATIENT IS AWAKE AT THIS TIME. TRAY WAS SETUP FOR HIM AND HE WAS ABLE TO EAT WITH SOME ASSISTANCE. PATIENT DOES AT TIMES COUGH TO CLEAR HIS THROAT WHEN EATING. PATIENT ATE APPROX. 50% OF HIS LUNCH.
--- NOTE | 2020-09-30 15:13 | NUR ---
SON HERE WITH TO SEE PATIENT. PROVIDED EMOTIONAL SUPPORT FOR THE FAMILY.
--- NOTE | 2020-09-30 15:13 | NUR ---
SON HERE TO SEE PATIENT. PROVIDED EMOTIONAL SUPPORT.
--- NOTE | 2020-09-30 15:35 | NUR ---
PATIENT IS ATTEMPTING TO GET OUT OF BED. PATIENT REDIRECTED AND HE LAID BACK DOWN IN BED AND IS RESTING AT THIS TIME. BED LOCKED IN LOW POSITION AND SIDE RAILS UP X2.
--- NOTE | 2020-09-30 17:53 | NUR ---
PATIENT ASSISTED WITH SUPPER AND IS EATING W/O DIFFICULTY.
--- NOTE | 2020-09-30 18:29 | NUR ---
PATIENT GIVEN A BED BATH AND LINENS CHANGED. PATIENT TOLERATED WELL.
--- NOTE | 2020-09-30 20:00 | NUR ---
PT ANXIOUS TRYING TO GET UP OUT OF BED. ASSISTED PT UP OUT OF BED PER 2 STAFF MEMBERS. REASSURED PT THAT WE WERE HERE TO HELP HIM. PT AGREED.
--- NOTE | 2020-09-30 23:00 | NUR ---
PT ASSISTED BACK TO BED. PT CONTINUES TO BE ANXIOUS. PT TOOK PO MEDICATIONS AT 21:00PM. PT WAS GIVEN ATIVAN ORDERED.
[2020-10-01] VITALS (16 sets, daily range): BP systolic 99–151; BP diastolic 58–91; TEMP 97.7–98.4
--- NOTE | 2020-10-01 01:11 | NUR ---
PT RESTING WITH EYES CLOSED. CALM NOW.
--- NOTE | 2020-10-01 01:45 | NUR ---
PT AWAKE. SITTING ON THE SIDE OF BED. CONFUSED.
--- NOTE | 2020-10-01 03:57 | NUR ---
PT IS RESTING QUIETLY IN BED WITH SIDE RAILS UP TIMES THREE, BED IN LOWEST POSITION, CALL LIGHT WITHIN REACH, AND SEEMS TO BE IN NO ACUTE DISTRESS AT THIS TIME.
--- NOTE | 2020-10-01 05:00 | NUR ---
PT JUST WOKE UP AND SEEMED VERY ANXIOUS AND AGITATED UPON AWAKENING. PT CONTINUOUSLY TRIES TO GET OUT OF BED. WE KEEP REASSURING HIS SAFETY AFTER COUNTLESS ATTEMPTS OF TRYING TO GET OUT OF BED. WE TRANSFERRED PT TO WHEELCHAIR, WHERE PT IS SITTING UPRIGHT AND IN NO DISTRESS RESPONDING TO VERBAL AND SENSORY STIMULI.
[2020-10-01 05:28] LABS: PLATELET COUNT 320 K/uL (142-355)
--- NOTE | 2020-10-01 05:40 | NUR ---
20G IV PUT IN THE RIGHT FOREARM SALINE LOCK AND FLUSHED DUE TO PT PULLING OUT 20G LEFT FOREARM IV AT THIS TIME. PT IS SITTING UPRIGHT IN THE WHEELCHAIR AT THIS TIME AND STILL AGITATED BUT WAS REASSURED OF SAFETY IN THE ICU ENVIRONMENT.
--- NOTE | 2020-10-01 06:50 | NUR ---
UPON ARRIVAL TO ICU FOR REPORT PT SITTING UP IN WHEELCHAIR CLOSE TO DESK PT TOLD ME GOOD MORNING NOTED TO BE VERY PLEASANT AT THIS TIME. HOWEVER PT DID ASK TO GO BACK TO BED SO PT ASSISTED BACK TO BED PER DENIS ANAAY LPN. PT SETTLING DOWN AND TOLD ME HE WAS GOIGN TO TAKE A NAP.
--- NOTE | 2020-10-01 08:00 | NUR ---
SPOKE WITH CHRIS IN UR CONCERNING PT'S BED AT [facility]. SHE WILL REVIEW AND LET ME KNOW 0830 INFORMED PER UR PT NEEDED CXR TO GO BACK TO [facility] 09 XRAY REPORT BACK AND TAKEN TO JUICE IN UR
--- NOTE | 2020-10-01 08:29 | NUR ---
Per Jayna Linton, RN in ICU, pt is doing well and per Dr. Butcher is ready for [place] back [place]. I spoke with pts son, Uziel Knott, . He stated that he hopes pt will be able to do short term rehab at the [facility] in [place] where he was originally, before being transferred to [facility], so that he will be able to return home after short term rehab. Uziel stated that they saved his bed at [facility]. I spoke with [facility] ph [phone], and they asked that i fax Felicia @ [facility] [phone], i have faxed and am awaiting a call back to see if they can receive him back today or tomorrow per Dr. Butcher' progress notes.
--- NOTE | 2020-10-01 08:45 | NUR ---
DR JENNINGS IN UNIT AT THIS TIME. ASKED WHAT TREATMENT PLAN WAS WITH PT CONCERNING HIS BED AT THE [facility]. DR JENNINGS STATED HE WAS UNSURE ABOUT BED SITUATION WILL SPEAK WITH CHRIS IN UR TO OBTAIN MORE INFOMR.
--- NOTE | 2020-10-01 08:45 | NUR ---
SPOKE WITH CHRIS IN UR AND ALL OF PT'S INFORMATION SENT TO [facility] AND AWAITING FURTHER INFORMATION.
--- NOTE | 2020-10-01 09:07 | NUR ---
XRAY AT OBTAINING CXR
--- NOTE | 2020-10-01 11:33 | NUR ---
SPOKE WITH CHRIS IN CONCERNING SENDING PT BACK TO [facility]. SHE STATED THEY WOULD ACCEPT HIM BACK BUT WAS REQUESTING PT TO REMAIN ON SAME IV ABX. WILL AMILCARMR DR JENNINGS
--- NOTE | 2020-10-01 11:39 | NUR ---
DR JENNINGS INFORMED INFORMATION PER UR PER THE [facility]. HE STATED HE WOULD SPEAK WITH CHRIS AND LET ME KNOW
--- NOTE | 2020-10-01 13:54 | NUR ---
CHRIS FROM CALLED AND STATED HTAT SHE COULDNT GET TRANSPORT HERE TODAY UNTIL LATE SO PT WILL BE LEAVING AT 0800 IN AM
--- NOTE | 2020-10-01 14:10 | NUR ---
DR JENNINGS INFORMED ANTONELLA PT WAS NOT LEAVING UNTIL THE AM DUE TO TRANSPORTATION
--- NOTE | 2020-10-01 15:32 | NUR ---
i called for transport to [facility], [facility], [facility], [facility], and [facility]. The only one able to transport today was [facility] and it would be after 9pm. [facility] [phone] was able to schedule transport for 8am on 10/02/20.
--- NOTE | 2020-10-01 16:00 | NUR ---
PT ASSISTED BACK TO BED X 2 MANUAL ASSIST. PT CAN FOLLOW SIMPLE COMMANDS BUT REMAINS VERY WEAK LOWER EXT.
--- NOTE | 2020-10-01 17:02 | NUR ---
SON CALLED AND UPDATE GIVEN AT THIS TIME. EXPLAINED TO HIM THAT TRANSPORT SET UP FOR 0800 IN AM AND I WOULD GIVE HIM CALL AFTER HE GOT ON THE ROAD IN AM.
--- NOTE | 2020-10-01 19:40 | NUR ---
AWKE AND CONFUSED TALKING OUT LOUD TO STAFF AND ATTEMPTING TO GET UP OUT OF BED, REORIENTED OFTENT AND STAFF MEMBER SITTING AT BEDSIDE WITH PT, RESP RATE NONLABORED, ON ROOM AIR, VITALS BEING MONITORED, WILL MONITOR CLOSELY, RAILS UP, BED IN LOW POSITION.
--- NOTE | 2020-10-01 21:17 | NUR ---
PT APPEARS AGITATED AND REMAINS VERY CONFUSED, ATTEMPTING TO GET OUT OF BED AND THINKS IT IS TIME TO LEAVE ON A PLANE, REORIENTED PT. STAFF MEMBER CONTINUES TO SIT AT BEDSIDE WITH PT ATTEMPTED TO REDIRECT PT MULTIPLE TIMES, PT REMAINS AGITATED AND DOES NOT LISTEN TO STAFF STILL ATTEMPTING TO GET OUT OF BED AND RASING VOICE AT STAFF, TALKING OUT LOUD CONSTANTLY. GAVE ATIVAN 1MG PO PRN FOR AGITATION(CRUSHED IN PUDDING), PT TOOK MEDICATION WITH NO PROBLEMS, WILL MONITOR CLOSELY, STAFF REMAINS AT BEDSIDE, RAILS UP X3, BED IN LOW POSITION. ALSO NOTE PT FIDGETING WITH COVERS AND KEEPS TRYING TO TAKE HIS GOWN OFF(CALLING GOWN HIS "HAT").
--- NOTE | 2020-10-01 22:42 | NUR ---
RESTING IN BED WITH EYES CLOSED, NO S/S OF PAIN OR DISTRESS NOTED, RESP RATE NONLABORED, VITALS BEING MONITORED, WILL MONITOR CLOSELY, RAILS UP, BED IN LOW POSITION.
[2020-10-02 00:01] VITALS: BP 151/62; TEMP 97.8
--- NOTE | 2020-10-02 00:14 | NUR ---
PT AWAKE LAYING IN BED TALKING WITH STAFF OFF AND ON WITH NO ACUTE DISTRESS NOTED, REMAINS CONFUSED, REDIRECTED PT AT TIMES AND REORIENTED OFTEN, PT KEEPS THINKING IT IS MORNING AND TIME TO GET UP TO GET DRESSED, RESP RATE NORMAL AND NONLABORED ON ROOM AIR WITH SAT OF 98%, 18F SCOTT PATENT DRAINING TO BEDSIDE WITH CLEAR YELLOW URINE NOTED IN BAG, IV INTACT TO R FA WITH NO PROBLEMS NOTED TO SITE, VITALS BEING MONITORED, EMBROIDERY WORKER IN USE WITH PACER SPIKES NOTED AND RATE IN 80s, STAFF MEMBER SITTING AT BEDSIDE FOR SAFETY REASONS. WILL MONITOR CLOSELY, RAILS UP X3, BED IN LOW POSITION, CALL LIGHT IN REACH.
--- NOTE | 2020-10-02 01:19 | NUR ---
AWAKE AND CONFUSED, TRYING TO GET OUT OF BED AND PULLING/SHAKING BED RAIL, REORIENTED AND REDIRECTED MULTIPLE TIMES, NOT FOLLOWING DIRECTIONS AT TIMES, THINKS IT IS TIME TO GET UP THROWING LEGS OVER BEDRAILS. STAFF REMAINS AT BEDSIDE WITH PT.
--- NOTE | 2020-10-02 01:39 | NUR ---
PT REMAINS CONFUSED AND RESTLESS/AGITATED, GAVE ZYPREXA 2.5MG IM PRN TO R DELTOID, WILL MONITOR CLOSELY, STAFF REMAINS AT BEDSIDE WITH PT.
[2020-10-02 02:00] VITALS: BP 153/65
--- NOTE | 2020-10-02 02:32 | NUR ---
PT HAS NOT BEEN ASLEEP MORE THAN 1-2 HOURS TONIGHT. REMAINS CONFUSED ATTEMPTING TO GET UP AND IS NOW PULLING AT HIS SCOTT CATH EVEN AFTER REORIENTING PT AND ATTEMPTING TO REDIRECT PT. STAFF MEMBER REMAINS AT PT'S BEDSIDE. NO S/S OF ACUTE DISTRESS OR PAIN, WILL MONITOR CLOSELY, RAILS UP, BED IN LOW POSITION.
--- NOTE | 2020-10-02 02:59 | NUR ---
GAVE PT TYLENOL 1000MG IV PRN FOR POSSIBLE GENERALIZED PAIN, PT REMAINS AWAKE AND FIDGETING WITH STAFF AND TALKING. CONFUSED. WILL MONITOR CLOSELY, RAILS UP, BED IN LOW POSITION, STAFF REMAINS AT BEDSIDE WITH PT TO MONITOR.
[2020-10-02 04:00] VITALS: BP 123/54; TEMP 97.7
--- NOTE | 2020-10-02 04:00 | NUR ---
RESTING WITH EYES CLOSED, NO S/S OF PAIN OR DISTRESS NOTED, RESP RATE NONLABORED, ON ROOM AIR, IV INTACT TO R FA, VITALS BEING MONITORED, SOFTWARE TEST DEVELOPER IN USE WITH PACER SPIKES NOTED AND RATE IN 70s, WILL MONITOR CLOSELY, RAILS UP X3, BED IN LOW POSITION.
--- NOTE | 2020-10-02 04:15 | NUR ---
CONTINUES TO REST WITH EYES CLOSED AND LIGHT SNORING NOTED OFF AND ON, WILL MONITOR CLOSELY, NO S/S OF PAIN OR DISTRESS NOTED.
--- NOTE | 2020-10-02 05:05 | NUR ---
RESTING WITH EYES CLOSED, NO S/S OF PAIN OR DISTRESS NOTED, RESP RATE NONLABORED, VITALS BEING MONITORED, WILL MONITOR CLOSELY, RAILS UP, BED IN LOW POSITION.
[2020-10-02 05:43] LABS: POTASSIUM 3.6 mmol/L (3.6-5.2)
[2020-10-02 06:00] VITALS: BP 151/76
--- NOTE | 2020-10-02 06:00 | NUR ---
PT AROUSES AND WANTS TO GET DRESSED, REORIENTED PT AND TOLD HIM IT WAS STILL NIGHT TIME TO GET MORE SLEEP, PT REMAINS CONFUSED AND TALKING WITH STAFF OFF AND ON, IV INTACT, SCOTT PATENT, RESP RATE NONLABORED, ON ROOM AIR, VITALS BEING MONITORED, WILL MONITOR CLOSELY, RAILS UP X3, BED IN LOW POSITION, STAFF MEMBER REMAINS AT BEDSIDE FOR SAFETY REASONS.
[2020-10-02 06:47] LABS: PLATELET COUNT 295 K/uL (142-355)
--- NOTE | 2020-10-02 09:18 | NUR ---
CALLED AND GAVE REPORT TO NURSE AT THE [facility].
--- NOTE | 2020-10-02 09:39 | NUR ---
0910 PT LEFT VIA [facility] WITH [facility]. PT DROSWY FROM PRIOR PRN MEDS. NO DISTRESS NOTED. IV HL REMAINS INTACT TO RT FA. HL WRAPPED WITH NAOMI. SCOTT CATH REMAINS INTACT WELL 18 FR COUDE. SCOTT BAG EMPTIED. 125 ML OF BLOOD TINGED URINE NOTED. NO BLEEDING OR PROBLEMS NOTED TO CATH.
== END 2020-10-02 15:39 | DRG 871 ==
LOC: ICU 11:50
PROVIDERS: Internal Medicine Endocrinology, Diabetes & Metabolism; ADMIT Psychiatry & Neurology Psychiatry; ATTEND Internal Medicine
DX: A41.81 Sepsis due to Enterococcus (principal); J18.8 Other pneumonia, unspecified organism; B37.41 Candidal cystitis and urethritis; E87.1 Hypo-osmolality and hyponatremia; E87.6 Hypokalemia; B37.2 Candidiasis of skin and nail; E55.9 Vitamin D deficiency, unspecified; I48.0 Paroxysmal atrial fibrillation; I25.10 Atherosclerotic heart disease of native coronary artery without angina pectoris; I25.2 Old myocardial infarction; R13.19 Other dysphagia
CPT/HCPCS: 36415; 80048; 80053; 80202; 85027; J1956; J0132; J1200; J1450; J1650; J2060; J2405; J2543; J3370; J3490